=== PATIENT | female | born 1965 | race Caucasian/White ===

== ENCOUNTER → 2017-07-30 | Outpatient (CLI) | payer BC ==
[2017-07-30 13:04] LABS: Basophils # (auto) 0 uL; Basophils % (auto) 0.6 % (0.0-2.0); Eosinophils # (auto) 0.1 uL; Eosinophils % (auto) 2.7 % (0.0-7.0); Hematocrit 49.6 % (36.0-46.0); Hemoglobin 16.6 g/dL (12.2-16.2); Lymphocytes % (auto) 17.7 % (10.0-50.0); Mean Corpuscular Hgb Conc. 33.5 g/dL (32.0-36.0); Mean Corpuscular Volume 86.4 fL (80.0-100.0); Monocytes # (auto) 0.4 uL; Neutrophils # (auto) 4.1 uL; Nucleated Red Blood Cells % 0.3 %; Platelet Count (auto) 232 10^3/uL (140-450); Red Blood Cells 5.74 10^6/uL (4.0-5.20); Red Cell Distribution Width 14.9 % (11.8-14.3); White Blood Cell 5.6 10^3/uL (4.4-10.8)
[2017-07-30 13:15] LABS: Albumin 4.4 g/dL (3.4-5.0); BUN/Creatinine Ratio 31.8; Bilirubin, Direct 0.4 mg/dL (0-0.2); Bilirubin, Total 2.2 mg/dL (0.2-1.0); Calcium 9.5 mg/dL (8.5-10.1); Potassium 3.9 mmol/L (3.5-5.1); Total Protein 8.1 g/dL (6.4-8.2)
[2017-07-31 12:54] LABS: Urine Blood Negative /uL (Negative); Urine Specific Gravity 1.028 (1.001-1.035)
== END | disposition home or self-care (01) ==
LOC: LAB 08:04
PROVIDERS: ATTEND Internal Medicine Cardiovascular Disease
DX: I10 Essential (primary) hypertension (principal); E11.9 Type 2 diabetes mellitus without complications; E78.00 Pure hypercholesterolemia, unspecified; E55.9 Vitamin D deficiency, unspecified; K74.1 Hepatic sclerosis; E03.9 Hypothyroidism, unspecified; D64.9 Anemia, unspecified; N39.0 Urinary tract infection, site not specified
CPT/HCPCS: 36415; 80048; 80061; 80076; 81003; 82306; 83036; 84443; 85025

== ENCOUNTER 2025-02-23 08:22 | Day surgery (SDC) | payer BC ==
[~2025-02-23] VITALS: Ht 165.1 cm; Wt 73.9 kg
[~2025-02-23 08:22] MED LIST: ALBUAER3 IN; BIOT5TAB3 PO; CHOL20007 OR; DICY10CA GT; EPIN0.1I11 IJ; EZET1TAB PO; GABA250S7 PO; IBUP-1454 PO; LEVO25TA6 PO; MULT-1018 PO; PANT40TA2 PO; RALO60TA14 GT; RIZA10TA50 OR; TRAM50TA2 PO; [UNRECOGNIZED DRUG - CODE] PO
[2025-02-23] MEDS ORDERED: fentaNYL CITRATE 100 MCG/2 ML VL ONE (09:02)
[2025-02-23] MEDS ORDERED: KETAMINE 50mg/ML 1ml syringe ONE (09:02)
[2025-02-23] MEDS ORDERED: MIDAZOLAM HCL 2MG/2ML 2ml VIAL (1mg/ml) ONE (09:02)
[2025-02-23] MEDS ORDERED: GLYCOPYRROLATE 0.2 MG/ML 1ML VIAL ONE (09:04)
[2025-02-23] MEDS ORDERED: ONDANSETRON HCL 4 MG/2 ML VIAL ONE (09:04)
[2025-02-23] MEDS ORDERED: KETOROLAC TROMETH 30 MG/ML 1ML VIAL ONE (09:04)
[2025-02-23] MEDS ORDERED: PHENYLEPHRINE HCL 10 MG/ML VL ONE (09:04)
[2025-02-23] MEDS ORDERED: ePHEDrine SULFATE 50 MG/ML AMP ONE (09:04)
[2025-02-23] MEDS ORDERED: PROPOFOL 10 MG/ML 20 ML IV ONE (09:04)
[2025-02-23] MEDS ORDERED: DexAMETHasone SOD PHOS 10MG/1ML VIAL INJ ONE (09:04)
[2025-02-23] MEDS ORDERED: LIDOCAINE 2% (LOCAL ANESTH.) PF 5ml SDV ONE (09:04)
[2025-02-23] MEDS ORDERED: ROCURONIUM 10MG/ML 10ML VIAL IV ONE (09:04)
[2025-02-23] MEDS ORDERED: EPINEPHrine HCL 1 MG/1 ML AMP ONE (10:56)
[2025-02-23] MEDS ORDERED: FAMOTIDINE (10MG/ML) 2ML VL IV ONE (10:57)
[2025-02-23] MEDS: ceFAZolin 2 GM/D5W50ml 50 ML IV ONE (12:51)
[2025-02-23] MEDS: TRANEXAMIC ACID 10 ML ONE (12:51)
[2025-02-23] MEDS ORDERED: HYDROmorphone HCL 2 MG/ML VL/or syr ONE (13:03)
[2025-02-23] MEDS: EPINEPHrine HCL 1 MG/1 ML AMP ONE (13:26)
[2025-02-23] MEDS ORDERED: SUGAMMADEX 200mg/2ml Vial (100MG/ML) IV ONE (14:03)
[2025-02-23 14:30] VITALS: PULSE 105; RESP 12; TEMP 97.8; O2SAT 96
[2025-02-23 14:40] VITALS: PULSE 95; RESP 13; O2SAT 96
[2025-02-23] MEDS: HYDROmorphone HCL 2 MG/ML VL/or syr IV PRN (15:14)
[2025-02-23] MEDS: ACETAMINOPHEN IV 100 ML IV ONE (16:13)
[2025-02-23] MEDS: ACETAMINOPHEN IV 1000 MG/100ML (10MG/ML) IV ONE (16:15)
[2025-02-23] MEDS: oxyCODONE ER 10 MG TAB PO ONE (16:25)
[2025-02-23 16:45] VITALS: BP 140/85; PULSE 89; RESP 12; O2SAT 98
[2025-02-23] MEDS: ONDANSETRON HCL 4 MG/2 ML VIAL IV ONE (16:46)
--- NOTE | 2025-02-23 18:21 | DVHOP2 ---
Operative Report - 2 Report Details Date: 02/23/25 Preop Diagnosis: Left shoulder rotator cuff tear and subacromial impingement Postop Diagnosis: Left shoulder rotator cuff tear and subacromial impingement Surgeon: Marielos Clark MD Anesthesiologist: Dr. Garcia Anesthesia: General, Regional Implant: Arthrex FiberTak x1, osseo x1 Consent: The patient was informed of the risks and benefits of the procedure. These include but are not limited to complications of anesthesia, postoperative infection, incomplete relief of symptoms, recurrence of symptoms, damage to blood vessels, nerves and tendons, deep venous thrombosis, pulmonary embolism and possible need for repeat surgery in the future. Complications: None Estimated Blood Loss: Less than 10 mL Indications for Surgery: The patient is a 59-year-old female who presented to the clinic with a history of chronic left shoulder pain. Clinical and radiological evaluation demonstrated a full-thickness rotator cuff tear. Nonoperative and operative management options were discussed. Surgery in the form of shoulder arthroscopy with rotator cuff repair was discussed as she had failed nonoperative management. Benefits, risks and treatment alternatives were discussed. Specific complications of the surgery such as neurovascular injury, infection, arthrofibrosis, loss of limb or life were discussed. She decided to proceed with the surgical option. Name of Procedure Performed Left shoulder arthroscopy with rotator cuff repair and subacromial decompression Procedure Details Procedure Details: The patient was identified in the preoperative holding area and the surgical site was marked. The consent was verified. The patient was brought into the operating room and placed supine on the operating table. General anesthesia was administered. The beachchair attachment was applied to the operating table. The patient was now brought up into the beachchair position, approximately 60 degrees. The arm was prepped and draped in the usual sterile manner. The arm was placed in the attachment for the spFORA.tver, mechanical arm chirinos. The extremity was examined under anesthesia and was found to have good passive range of motion. A timeout was performed to confirm the identity of the patient, the nature of surgery, the site of surgery, the available of implants and x-rays and allergies to medications A standard posterior portal established. A 30 degree scope was inserted A standard anterior portal was established. A probe was inserted and the findings are as follows: 1. Intact subscapularis tendon 2. Mild fraying and tear of the biceps tendon 3. Circumferential degenerative labral tear 4. Grade I-II chondromalacia 5. Significant synovitis 6. Full-thickness rotator cuff tear, medium-sized with retraction to cartilage with delamination The subacromial space was entered. Significant bursitis was noted. Decompression was carried out with bursectomy. The rotator cuff tear was visualized. This was a large sized tear after debridement. This was delaminated and the inferior part was retracted up to the humeral head cartila A thermal ablation Wand was used on the superior and inferior surface of the rotator cuff to do the releases. Rotator interval was also released. I dec ided to do a double row repair for this tear. A medial row Arthrex all suture anchor was used and was inserted at the cartilage junction. This was a triple loaded anchor. It had very good fixation. 2 additional portals were made, the posterior lateral portal and the superior portal for this. A cannula was inserted into the lateral portal. A suture penetration and grasping device was used to grasp the tissue and passed the sutures. The sutures were sequentially passed from anterior to posterior direction. Six passes were made. The sutures were now tied for an excellent medial row footprint coverage. All sutures were now inserted into the lateral row anchor. A punch was used. The anchor was inserted and the screw was inserted for excellent fixation. Double row repair was completed. Subacromial decompression was completed with acromioplasty to remove approximately 5 mm of acromion as it was downsloping in nature. Irrigation was given and the skin portals were closed with 2-0 nylon Sterile dressing was applied. Local anesthetic was given. Shoulder immobilizer was applied Disposition: Good, the patient was extubated and taken to recovery without any complications. Plan: To remain in the brace. Follow-up in 1 week. Condition Good Disposition Home MARIELOS CLARK MD Feb 23, 2025 18:21
== END 2025-02-23 17:00 | disposition home or self-care (01) ==
LOC: SUR 08:22
PROVIDERS: ATTEND Orthopaedic Surgery Sports Medicine
DX: M75.122 Complete rotator cuff tear or rupture of left shoulder, not specified as traumatic (principal); M94.212 Chondromalacia, left shoulder; M65.912 Unspecified synovitis and tenosynovitis, left shoulder; M25.812 Other specified joint disorders, left shoulder; M75.52 Bursitis of left shoulder; G89.29 Other chronic pain; J45.909 Unspecified asthma, uncomplicated; G43.909 Migraine, unspecified, not intractable, without status migrainosus; S46.212A Strain of muscle, fascia and tendon of other parts of biceps, left arm, initial encounter; S43.432A Superior glenoid labrum lesion of left shoulder, initial encounter; X58.XXXA Exposure to other specified factors, initial encounter; Y93.89 Activity, other specified; Y92.89 Other specified places as the place of occurrence of the external cause; Y99.8 Other external cause status
CPT/HCPCS: 29826; 29827; C1713; J0171; J0690; J1100; J1171; J1885; J2003; J2250; J2371; J2405; J2704; J3010; J3490; A4565; J0131